=== PATIENT | female | born 1970 | race Caucasian/White ===

== ENCOUNTER 2017-11-08 13:13 | Emergency (ER) | payer BC ==
[~2017-11-08] VITALS: Ht 154.9 cm; Wt 66.2 kg
[2017-11-08 13:14] VITALS: BP 120/77
== END 2017-11-08 14:37 | disposition home or self-care (01) ==
LOC: ER 13:15
DX: S93.602A Unspecified sprain of left foot, initial encounter (principal); F17.200 Nicotine dependence, unspecified, uncomplicated; Z86.19 Personal history of other infectious and parasitic diseases; W01.0XXA Fall on same level from slipping, tripping and stumbling without subsequent striking against object, initial encounter; Y93.89 Activity, other specified; Y92.89 Other specified places as the place of occurrence of the external cause; Y99.8 Other external cause status
CPT/HCPCS: 73630-TC; A4606; Z7610